=== PATIENT | female | born 2005 | race Caucasian/White ===

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

== ENCOUNTER 2025-04-10 15:19 | Emergency (ER) | payer OTHER ==
[~2025-04-10] VITALS: Ht 157.5 cm; Wt 81.0 kg
[2025-04-10 15:35] VITALS: BP 115/78; PULSE 67; RESP 18; TEMP 98.1; O2SAT 100
[2025-04-10 16:13] LABS: APPEARANCE,URINE CLEAR (CLEAR); GLUCOSE, URINE (UA) NEGATIVE (NEGATIVE); LEUKOCYTE ESTERASE ,URINE NEGATIVE (NEGATIVE); NITRATE,URINE NEGATIVE (NEGATIVE); OCCULT BLOOD,URINE NEGATIVE (NEGATIVE); SPECIFIC GRAVITIY, URINE 1.018 (1.003-1.030)
[2025-04-10 16:16] LABS: HCG,QUAL URINE NEGATIVE (NEGATIVE)
[2025-04-10] MEDS: LIDOCAINE 5% TRANSDERMAL PATCH TD ONE (16:26)
[2025-04-10] MEDS: KETOROLAC TROMETHAMINE 30 MG/ML VIAL IM ONE (16:26)
[2025-04-10] MEDS ORDERED: METH-659 PO (17:48)
[2025-04-10] MEDS ORDERED: IBUP-1492 PO (17:48)
[2025-04-10] MEDS ORDERED: HYDR-4062 PO (17:48)
[2025-04-10] MEDS ORDERED: PRED-554 PO (17:48)
== END 2025-04-10 18:08 | disposition home or self-care (01) ==
LOC: EMS 15:19
DX: M54.42 Lumbago with sciatica, left side (principal); Z79.52 Long term (current) use of systemic steroids; Z79.899 Other long term (current) drug therapy
CPT/HCPCS: 99283; 81003; 84703; 96372; J1885

== ENCOUNTER 2025-04-12 11:56 | Emergency (ER) | payer OTHER ==
[~2025-04-12] VITALS: Ht 157.5 cm; Wt 81.8 kg
[~2025-04-12 11:56] MED LIST: HYDR-4062 PO; IBUP-1492 PO; METH-659 PO; PRED-554 PO
[2025-04-12 11:59] VITALS: BP 125/77; PULSE 68; RESP 16; TEMP 98.2; O2SAT 100
[2025-04-12] MEDS ORDERED: ADAL40PE5 SQ (12:06)
== END 2025-04-12 12:43 | disposition home or self-care (01) ==
LOC: EMS 11:57
DX: M54.30 Sciatica, unspecified side (principal); Z79.52 Long term (current) use of systemic steroids; Z79.620 Long term (current) use of immunosuppressive biologic; Z79.899 Other long term (current) drug therapy
CPT/HCPCS: 99282; Z7502